=== PATIENT | female | born 1945 | race Caucasian/White ===

== ENCOUNTER 2018-02-27 06:20 | Day surgery (SDC) | payer MEDICARE, OTHER ==
[~2018-02-27] VITALS: Ht 170.2 cm; Wt 103.9 kg
[~2018-02-27 06:20] MED LIST: AMLO10 PO; ASPI325 PO; ASPI81CH PO; ASPI81EC PO; BIOTIN PO; BIOTIN5 MG PO; CELE200 PO; CLON.1 PO; CLON.2 PO; CLON.3 PO; CYCL10 PO; CYCLOBENZAPRINE PO; DOCU100 PO; EDARBI40 MG PO; ESTR2 PO; FISH OIL PO; FISH1000 PO; GLUC500 PO; HYDACE5; HYDCHL12.5 PO; HYDRALAZINE HCL PO; Hydrocodone-Ap1 EA23 PO; LAVAP17G PO; MELA3 PO; METOPROLOL 25MG PO; MULVIT PO; OMEGA PO; OMEP10ER PO; OMEP20ER PO; ONE A DAY VITAMIN PO; RANI150 PO; REPATHA SU140 MG/1 M SQ; TOCO400 PO; TRAN4 PO; TRAVER2240 PO; VERA240ERA PO; [UNRECOGNIZED DRUG - OTHER] PO
[2018-02-27] MEDS ORDERED: BACL10 (07:08)
[2018-02-27] MEDS ORDERED: LABE100 (07:08)
== END 2018-02-27 12:36 | disposition home or self-care (01) ==
LOC: ORSCSDS 06:20
PROVIDERS: Orthopaedic Surgery
PROC: 0LQ14ZZ Repair Right Shoulder Tendon, Percutaneous Endoscopic Approach (ICD-10-PCS; principal; 2018-02-27 07:30)
PROC: 0RCJ4ZZ Extirpation of Matter from Right Shoulder Joint, Percutaneous Endoscopic Approach (ICD-10-PCS; principal; 2018-02-27 07:30)
PROC: 0LS14ZZ Reposition Right Shoulder Tendon, Percutaneous Endoscopic Approach (ICD-10-PCS; principal; 2018-02-27 07:30)
PROC: 0RHJ44Z Insertion of Internal Fixation Device into Right Shoulder Joint, Percutaneous Endoscopic Approach (ICD-10-PCS; principal; 2018-02-27 07:30)
DX: M75.111 Incomplete rotator cuff tear or rupture of right shoulder, not specified as traumatic (principal); M75.21 Bicipital tendinitis, right shoulder; S46.111A Strain of muscle, fascia and tendon of long head of biceps, right arm, initial encounter; M24.011 Loose body in right shoulder; I10 Essential (primary) hypertension; Z86.73 Personal history of transient ischemic attack (TIA), and cerebral infarction without residual deficits; Z79.899 Other long term (current) drug therapy
CPT/HCPCS: C1713; J0171; J0690; J1100; J2250; J2405; J2710; J2765; J3010; J7120

== ENCOUNTER → 2019-10-31 | Outpatient (CLI) | payer MEDICARE, OTHER ==
[~2019-10-31] MED LIST changes: +BACL10; +LABE100
[2019-10-31 19:32] LABS: U Amphetamine Screen Not Detected; U Barbituate Screen Not Detected; U Benzodiazapine Screen Not Detected; U Buprenorphine Screen Not Detected; U Cannabinoids Screen Not Detected; U Cocaine Screen Not Detected; U Methadone Screen Not Detected; U Methamphetamine Screen Not Detected; U Opiates Screen DETECTED; U Oxycodone Screen Not Detected; U Phencyclidine Screen Not Detected; U Propoxyphene Screen Not Detected
== END | disposition home or self-care (01) ==
LOC: LAB 17:47 → LAB SHORT 17:47
PROVIDERS: Nurse Practitioner Family
DX: Z51.81 Encounter for therapeutic drug level monitoring (principal); Z79.891 Long term (current) use of opiate analgesic
CPT/HCPCS: G0480

== ENCOUNTER → 2020-07-21 | Outpatient (CLI) | payer MEDICARE, OTHER ==
[2020-07-21 15:58] LABS: BASOPHILS ABSOLUTE AUTO 0.04 K/mm3 (0.00-0.23); BASOPHILS PERCENT AUTO 0 % (0-2); EOSINOPHILS ABSOLUTE AUTO 0.23 K/mm3 (0.00-0.68); EOSINOPHILS PERCENT AUTO 3 % (0-6); Hematocrit 36.9 % (33.0-51.0); IMMATURE GRAN ABSOLUTE AUTO 0.02 K/mm3 (0.00-0.10); IMMATURE GRAN PERCENT AUTO 0 % (0-1); LYMPHOCYTES ABSOLUTE AUTO 2.09 K/mm3 (0.84-5.20); LYMPHOCYTES PERCENT AUTO 23 % (21-46); MONOCYTES ABSOLUTE AUTO 0.72 K/mm3 (0.16-1.47); MONOCYTES PERCENT AUTO 8 % (4-13); Mean Corpuscular HGB 30.1 pg (26.0-34.0); Mean Corpuscular HGB Conc 32.5 g/dL (31.5-36.5); Mean Corpuscular Volume 93 fL (80-100); Mean Platelet Volume 10.9 fL (9.1-12.4); NEUTROPHILS ABSOLUTE AUTO 6.08 K/mm3 (1.96-9.15); NEUTROPHILS PERCENT AUTO 66 % (41-73); Platelet Count 306 K/mm3 (150-400); RDW Coefficient Variation 13.5 % (11.7-14.2); RDW Standard Deviation 45.9 fL (35.1-46.3); Red Blood Cell Count 3.99 M/mm3 (3.80-5.20); White Blood Cell Count 9.18 K/mm3 (4.00-11.30)
[2020-07-21 16:11] LABS: Anion Gap 5 mmol/L (6-16); Blood Urea Nitrogen 20 mg/dL (8-24); Bun/Creatinine Ratio 19.6 (12.0-20.0); CO2, Blood 28 mmol/L (21-32); Calcium, Blood 9.3 mg/dL (8.5-10.1); Chloride, Blood 102 mmol/L (98-108); Creatinine, Blood 1.02 mg/dL (0.40-1.00); Glomerular Filtration Rate 53 (60-); Glucose, Blood 93 mg/dL (70-99); Potassium, Blood 4.7 mmol/L (3.5-5.5); Sodium, Blood 135 mmol/L (136-145); Troponin I <0.017 ng/mL (0.000-0.040)
[2020-07-21 16:56] LABS: Thyroid Stimulating Hormone 2.292 uIU/mL (0.360-4.800)
== END | disposition home or self-care (01) ==
LOC: LAB EV 15:54 → LAB SHORT 15:54
PROVIDERS: Family Medicine
DX: R06.09 Other forms of dyspnea (principal)
CPT/HCPCS: 80048; 83880; 84443; 84484; 85025

== ENCOUNTER → 2020-09-19 | Outpatient (CLI) | payer MEDICARE, OTHER | END | disposition home or self-care (01) | LOC: LAB EV 11:00 | DX: Z51.81 Encounter for therapeutic drug level monitoring (principal); Z79.899 Other long term (current) drug therapy | CPT/HCPCS: G0480 ==

== ENCOUNTER 2021-09-01 17:37 | Inpatient (IN) | payer MEDICARE, OTHER ==
[~2021-09-01] VITALS: Ht 170.2 cm; Wt 100.4 kg
[~2021-09-01 17:37] MED LIST changes: -ALDACTONE25 MG PO; -CATAPRES0.2 M1 PO; -ESOM20 PO; -ESOMEPRAZOLE MA20 MG PO; -Estradiol PO; -LABE200 PO; -SPIR25 PO
[2021-09-01] MEDS ORDERED: SPIR25 PO (18:20)
[2021-09-01] MEDS ORDERED: ESOM20 PO (18:21)
[2021-09-01] MEDS ORDERED: EDARBI40 MG PO (20:10)
[2021-09-01] MEDS ORDERED: BACL10 PO (20:11)
[2021-09-01] MEDS ORDERED: CATAPRES0.2 M1 PO (20:12)
[2021-09-01] MEDS ORDERED: ESOMEPRAZOLE MA20 MG PO (20:13)
[2021-09-01] MEDS ORDERED: Estradiol PO (20:14)
[2021-09-01] MEDS ORDERED: LABE200 PO (20:16)
[2021-09-01] MEDS ORDERED: ALDACTONE25 MG PO (20:17)
--- NOTE | 2021-09-02 04:44 | NUR ---
SHIFT SUMMARY: JOSE MANUEL WAS ADMITTED LAST NIGHT FOR POSSIBLE SBO. AOX3, COOPERATIVE. NEW IV STARTED IN LEFT AC 20G. IVF STARTED AND INFUSING WELL. OFF AND ON OCCATIONAL ABDOMINAL CRAMPING, TOLERABLE, NO PAIN MEDS GIVEN. ABDOMIN SLIGHTLY DISTENDED, HYPOACTIVE BT. HAD 1 EPISODE OF EMESIS OF 1000ML BROWN BILE. REPORTS BEING THIRSTY BUT NPO. HELD OFF ON NG TUBE SHE HAS SIPPED ON CONTRAST ALL NIGHT FOR THIS AM CT SCAN, LIQUID STOOL NOTED. HAS NOT HAD ANY OTHER NAUSEA SINCE THE START. NAUSEA MEDS WERE GIVEN TO HELP KEEP CONTRAST DOWN CT IS AT 6 AM THIS MORNING. WILL CONTINUE TO MONITOR. CALL LIGHT IS IN REACH.
[2021-09-02 05:16] LABS: BASOPHILS ABSOLUTE AUTO 0.05 K/mm3 (0.00-0.23); BASOPHILS PERCENT AUTO 0 % (0-2); EOSINOPHILS ABSOLUTE AUTO 0.08 K/mm3 (0.00-0.68); EOSINOPHILS PERCENT AUTO 1 % (0-6); Hematocrit 40.1 % (33.0-51.0); Hemoglobin 12.9 g/dL (11.5-16.0); IMMATURE GRAN ABSOLUTE AUTO 0.06 K/mm3 (0.00-0.10); IMMATURE GRAN PERCENT AUTO 0 % (0-1); LYMPHOCYTES ABSOLUTE AUTO 1.55 K/mm3 (0.84-5.20); LYMPHOCYTES PERCENT AUTO 10 % (21-46); MONOCYTES ABSOLUTE AUTO 1.73 K/mm3 (0.16-1.47); MONOCYTES PERCENT AUTO 11 % (4-13); Mean Corpuscular HGB 29.6 pg (26.0-34.0); Mean Corpuscular HGB Conc 32.2 g/dL (31.5-36.5); Mean Corpuscular Volume 92 fL (80-100); Mean Platelet Volume 11.2 fL (9.1-12.4); NEUTROPHILS ABSOLUTE AUTO 12.27 K/mm3 (1.96-9.15); NEUTROPHILS PERCENT AUTO 78 % (41-73); Platelet Count 298 K/mm3 (150-400); RDW Coefficient Variation 13.7 % (11.7-14.2); RDW Standard Deviation 46.1 fL (35.1-46.3); Red Blood Cell Count 4.36 M/mm3 (3.80-5.20); White Blood Cell Count 15.74 K/mm3 (4.00-11.30)
--- NOTE | 2021-09-02 06:10 | NUR ---
JOSE MANUEL SAT UP THIS MORNING AROUND 0500 AND JUST STARTED TO VOMIT EVERYWHERE. LINEN AND BEDDING WAS CHANGED. GOWN CHANGED AND PATIENT WASHED UP. CALLED RADIOLOGY AND INFORMED THAT THE PATIENT WAS NOT ABLE TO KEEP CONSTRAST DOWN. SHORTLY AFTER SHE VOMITTED AGAIN. NGT WAS PLACED. RADIOLOGY WAS INFORMED SO THAT THEY CAN VERIFY PLACEMENT. NGT PLACED IN LEFT NOSTRIL. PATIENT CURRENTLY DOWN TO RADIOLODY.
[2021-09-02 06:11] LABS: Albumin, Blood 3.1 g/dL (3.4-5.0); Albumin/Globulin Ratio 0.9 (0.8-1.8); Bilirubin, Total 0.7 mg/dL (0.1-1.0); Creatinine, Blood 2.87 mg/dL (0.40-1.00); Globulin, Blood 3.4 g/dL (2.2-4.0); Potassium, Blood 4.3 mmol/L (3.5-5.5); Total Protein, Blood 6.5 g/dL (6.4-8.2)
[2021-09-02 11:10] LABS: Influenza A, PCR NEGATIVE (NEGATIVE); Influenza B, PCR NEGATIVE (NEGATIVE); Resp Syncytial Virus, PCR NEGATIVE (NEGATIVE); SARS-Cov-2 (COVID-19) PCR, MMC NEGATIVE (NEGATIVE)
--- NOTE | 2021-09-02 18:53 | NUR ---
SHIFT SUMMARY PATIENT IS RESTING IN RECLINER CHAIR. PATIENT HAS HAD ELEVATED BP AND BACK PAIN. TREATED PER EMAR. PATIENT IS NPO WITH NG TUBE TO SUCTION. PAIENT ON TELE READING SINUS TACH PER [employer]IC APPRENTICE. PLAN TO DO A SMALL BOWEL FOLLOW THROUGH TOMORROW. WILL CONTINUE TO MONITOR.
[2021-09-03 04:50] LABS: Hematocrit 39.4 % (33.0-51.0); Hemoglobin 12.8 g/dL (11.5-16.0)
--- NOTE | 2021-09-03 04:54 | NUR ---
SHIFT SUMMARY AOX4. VSS. TELE ST c PVC @101. REPORTS 3/10 BACK PAIN FROM LYING AROUND, DENIES NEED FOR PAIN MEDICATION. NPO FOR SBO. NG TUBE IN L NARES, SET TO LOW INT SUCTION, CLEAR YELLOW DRAINAGE OUT. 24HR URINE RESTARTED @0020 SINCE LAST URINE WAS CONTAMINATED. BP ELEVATED THIS AM @181/88, GAVE 10MG HYDRALAZINE & BP DECREASED TO 154/78. CALL LIGHT IN REACH & PT ABLE TO MAKE NEEDS KNOWN. WCTM.
[2021-09-03 05:37] LABS: Cortisol, AM 50.9 ug/dL (6.7-22.6)
[2021-09-03 05:47] LABS: Albumin, Blood 3.1 g/dL (3.4-5.0); Anion Gap 12 mmol/L (6-16); Blood Urea Nitrogen 59 mg/dL (8-24); Bun/Creatinine Ratio 36.2 (12.0-20.0); CO2, Blood 20 mmol/L (21-32); CPK Creatine Kinase 42 U/L (26-193); Calcium, Blood 9.9 mg/dL (8.5-10.1); Chloride, Blood 110 mmol/L (98-108); Creatinine, Blood 1.63 mg/dL (0.40-1.00); Glomerular Filtration Rate 31 (60-); Glucose, Blood 108 mg/dL (70-99); Magnesium, Blood 2.1 mg/dL (1.6-2.4); Phosphorus, Blood 3.1 mg/dL (2.5-4.9); Sodium, Blood 142 mmol/L (136-145); Thyroid Stimulating Hormone 0.317 uIU/mL (0.360-4.800); Uric Acid, Blood 12.4 mg/dL (2.6-6.0)
--- NOTE | 2021-09-03 09:55 | NUR ---
PT HAS RETURNED FROM IMAGING AFTER FIRST PART OF SMALL BOWEL FOLLOW THRU. SHE DENIES NAUSEA OR NEED FOR MEDICATAION. INSTRUCTED TO CALL IF SHE HAS ANY NAUSEA. CALL ESCALANTE IN REACH, WILL MONITOR.
--- NOTE | 2021-09-03 18:36 | NUR ---
NGT DISCONTINUED W/O DIFFICULTY PER DR RAMOS'S ORDER. CLEAR LIQUID TRAY ORDERED AND DELIVERED TO PT. SHE IS TOLERATING WELL AT THIS TIME. WILL MONITOR.
--- NOTE | 2021-09-04 04:43 | NUR ---
PT ALERT AND ORIENTED. DID NOT HAVE MUCH SLEEP TONIGHT. NO C/O OF GI ISSUUES. RESTING ON BED QUIETLY. EXPRESS FEELING BETTER. CALL LIGHT WHITIN REACH. KEEP MOONITORING
[2021-09-04 05:27] LABS: Hematocrit 37.2 % (33.0-51.0); Hemoglobin 11.8 g/dL (11.5-16.0)
[2021-09-04 05:53] LABS: Albumin, Blood 3.1 g/dL (3.4-5.0); Anion Gap 9 mmol/L (6-16); Blood Urea Nitrogen 58 mg/dL (8-24); CO2, Blood 22 mmol/L (21-32); Calcium, Blood 9.1 mg/dL (8.5-10.1); Chloride, Blood 114 mmol/L (98-108); Creatinine, Blood 1.38 mg/dL (0.40-1.00); Glomerular Filtration Rate 37 (60-); Glucose, Blood 123 mg/dL (70-99); Magnesium, Blood 2.1 mg/dL (1.6-2.4); Potassium, Blood 3.6 mmol/L (3.5-5.5); Sodium, Blood 145 mmol/L (136-145)
[2021-09-04 09:52] LABS: Protein, Urine Quantitative 29.6 mg/dL (0.0-11.9)
--- NOTE | 2021-09-04 15:19 | NUR ---
DISCHARGE DISCHARGE INSTRUCTIONS, MEDIATION LIST AND FOLLOW UP APPOINTMENT REVIEWED WITH PT AND HER SPOUSE. QUESTIONS/CONCERNS ANSWERED. BOTH VERBALLY INDICATED UNDERSTANDING OF ALL INSTRUCTIONS RECEIVED. ESCORTED OUT VIA W/C BY JULIA
[2021-09-07 10:11] LABS: ANTIGLOMERULAR BM AB 2 units (0-20)
[2021-09-07 13:11] LABS: ANA DIRECT Negative (Negative); ANTIMYELOPEROXIDASE (MPO) ABS <9.0 U/mL (0.0-9.0); ANTIPROTEINASE 3 (PR-3) ABS <3.5 U/mL (0.0-3.5); ATYPICAL PANCA <1:20 titer (Neg:<1:20); CYTOPLASMIC (C-ANCA) <1:20 titer (Neg:<1:20); PERINUCLEAR (P-ANCA) <1:20 titer (Neg:<1:20)
[2021-09-07 15:11] LABS: A/G RATIO 1.1 (0.7-1.7); ALBUMIN 3.2 g/dL (2.9-4.4); ALPHA-1-GLOBULIN 0.4 g/dL (0.0-0.4); ALPHA-2-GLOBULIN 1.1 g/dL (0.4-1.0); GAMMA GLOBULIN 0.7 g/dL (0.4-1.8); GLOBULIN, TOTAL 3.2 g/dL (2.2-3.9); IMMUNOGLOBULIN A, QN, SERUM 130 mg/dL (64-422); IMMUNOGLOBULIN G, QN, SERUM 628 mg/dL (586-1602); IMMUNOGLOBULIN M, QN, SERUM 33 mg/dL (26-217); M-SPIKE Not Observed g/dL (Not Observed); PROTEIN, TOTAL, SERUM 6.4 g/dL (6.0-8.5)
[2021-09-09 11:11] LABS: M-SPIKE, % Not Observed % (Not Observed); PROTEIN,TOTAL,URINE 9.5 mg/dL (Not Estab.)
== END 2021-09-04 15:16 | disposition home or self-care (01) | DRG 389 ==
LOC: MEDS 17:37
PROVIDERS: Internal Medicine Nephrology; Surgery; ADMIT Family Medicine
DX: K56.609 Unspecified intestinal obstruction, unspecified as to partial versus complete obstruction (principal); I13.0 Hypertensive heart and chronic kidney disease with heart failure and stage 1 through stage 4 chronic kidney disease, or unspecified chronic kidney disease; I50.32 Chronic diastolic (congestive) heart failure; N17.9 Acute kidney failure, unspecified; E87.1 Hypo-osmolality and hyponatremia; R65.10 Systemic inflammatory response syndrome (SIRS) of non-infectious origin without acute organ dysfunction; E87.2 Acidosis; E86.0 Dehydration; Z20.822 Contact with and (suspected) exposure to COVID-19; E83.39 Other disorders of phosphorus metabolism; E88.09 Other disorders of plasma-protein metabolism, not elsewhere classified; N18.30 Chronic kidney disease, stage 3 unspecified; K59.09 Other constipation; E78.5 Hyperlipidemia, unspecified; R73.03 Prediabetes; G89.4 Chronic pain syndrome; G47.33 Obstructive sleep apnea (adult) (pediatric); F41.9 Anxiety disorder, unspecified; E55.9 Vitamin D deficiency, unspecified; E66.9 Obesity, unspecified; G47.00 Insomnia, unspecified; K21.9 Gastro-esophageal reflux disease without esophagitis; F32.A Depression, unspecified; Z96.653 Presence of artificial knee joint, bilateral; Z90.710 Acquired absence of both cervix and uterus; Z88.2 Allergy status to sulfonamides; Z88.8 Allergy status to other drugs, medicaments and biological substances; Z28.21 Immunization not carried out because of patient refusal; Z91.013 Allergy to seafood; Z79.899 Other long term (current) drug therapy; Z79.82 Long term (current) use of aspirin; Z98.890 Other specified postprocedural states; Z86.73 Personal history of transient ischemic attack (TIA), and cerebral infarction without residual deficits
CPT/HCPCS: 0241U; 36415; 71045; 74022; 74176; 74250; 80053; 80069; 81050; 82397; 82533; 82550; 82784; 83516; 83520; 83690; 83735; 83970; 84156; 84165; 84443; 84550; 85014; 85018; 85025; 86038; 86256; 86334; A9270; C9113; J0360; J1644; J2270; J2405; J2765; J7030; J7060

== ENCOUNTER → 2021-09-01 | Outpatient (CLI) | payer MEDICARE, OTHER ==
[~2021-09-01] MED LIST changes: +ALDACTONE25 MG PO; -BACL10; +BACL10 PO; +CATAPRES0.2 M1 PO; +ESOM20 PO; +ESOMEPRAZOLE MA20 MG PO; +Estradiol PO; -LABE100; +LABE100 PO; +LABE200 PO; +SPIR25 PO
[2021-09-01 11:52] LABS: BASOPHILS ABSOLUTE AUTO 0.04 K/mm3 (0.00-0.23); BASOPHILS PERCENT AUTO 0 % (0-2); EOSINOPHILS ABSOLUTE AUTO 0.07 K/mm3 (0.00-0.68); EOSINOPHILS PERCENT AUTO 0 % (0-6); Hematocrit 43.9 % (33.0-51.0); Hemoglobin 14.4 g/dL (11.5-16.0); IMMATURE GRAN ABSOLUTE AUTO 0.05 K/mm3 (0.00-0.10); IMMATURE GRAN PERCENT AUTO 0 % (0-1); LYMPHOCYTES ABSOLUTE AUTO 1.21 K/mm3 (0.84-5.20); LYMPHOCYTES PERCENT AUTO 8 % (21-46); MONOCYTES ABSOLUTE AUTO 1.35 K/mm3 (0.16-1.47); MONOCYTES PERCENT AUTO 8 % (4-13); Mean Corpuscular HGB 29.8 pg (26.0-34.0); Mean Corpuscular HGB Conc 32.8 g/dL (31.5-36.5); Mean Corpuscular Volume 91 fL (80-100); Mean Platelet Volume 10.5 fL (9.1-12.4); NEUTROPHILS ABSOLUTE AUTO 13.27 K/mm3 (1.96-9.15); NEUTROPHILS PERCENT AUTO 83 % (41-73); Platelet Count 337 K/mm3 (150-400); RDW Standard Deviation 46.2 fL (35.1-46.3); Red Blood Cell Count 4.83 M/mm3 (3.80-5.20); White Blood Cell Count 15.99 K/mm3 (4.00-11.30)
[2021-09-01 12:08] LABS: Albumin, Blood 3.8 g/dL (3.4-5.0); Albumin/Globulin Ratio 1.1 (0.8-1.8); Bilirubin, Total 1.1 mg/dL (0.1-1.0); Bun/Creatinine Ratio 17.6 (12.0-20.0); Calcium, Blood 11.1 mg/dL (8.5-10.1); Creatinine, Blood 3.41 mg/dL (0.40-1.00); Globulin, Blood 3.6 g/dL (2.2-4.0); Potassium, Blood 4.7 mmol/L (3.5-5.5); Total Protein, Blood 7.4 g/dL (6.4-8.2)
== END | disposition home or self-care (01) ==
LOC: LAB SHORT 11:49 → LAB 11:49
PROVIDERS: Physician Assistant
DX: R11.2 Nausea with vomiting, unspecified (principal)
CPT/HCPCS: 80053; 83690; 85025

== ENCOUNTER → 2021-10-22 | Outpatient (CLI) | payer MEDICARE, OTHER ==
[~2021-10-22] MED LIST changes: +ALDACTONE25 MG PO; +CATAPRES0.2 M1 PO; +ESOM20 PO; +ESOMEPRAZOLE MA20 MG PO; +Estradiol PO; +LABE200 PO; +SPIR25 PO
[2021-10-28 13:09] LABS: CARBOXY-THC Not Detected (.)
== END | disposition home or self-care (01) ==
LOC: LAB SHORT 18:03
PROVIDERS: Family Medicine
DX: Z51.81 Encounter for therapeutic drug level monitoring (principal); Z79.899 Other long term (current) drug therapy
CPT/HCPCS: G0480

== ENCOUNTER → 2022-01-28 | Outpatient (CLI) | payer MEDICARE, OTHER | END | disposition home or self-care (01) | LOC: LAB SHORT 13:20 → LAB 13:20 | PROVIDERS: Family Medicine | DX: Z51.81 Encounter for therapeutic drug level monitoring (principal); Z79.899 Other long term (current) drug therapy | CPT/HCPCS: G0480 ==

== ENCOUNTER → 2022-04-30 | Outpatient (CLI) | payer MEDICARE, OTHER ==
[2022-04-30 10:41] LABS: Alanine Aminotransfer (ALT/SGP 23 U/L (12-78); Albumin, Blood 3.1 g/dL (3.4-5.0); Albumin/Globulin Ratio 0.9 (0.8-1.8); Alk Phos 91 U/L (50-136); Anion Gap 5 mmol/L (6-16); Aspartate Aminotrans (AST/SGOT 17 U/L (12-37); Bilirubin, Total 0.4 mg/dL (0.1-1.0); Blood Urea Nitrogen 29 mg/dL (8-24); Bun/Creatinine Ratio 26.4 (12.0-20.0); CHOL/HDL RATIO 3.8; CO2, Blood 28 mmol/L (21-32); Calcium, Blood 9.5 mg/dL (8.5-10.1); Chloride, Blood 105 mmol/L (98-108); Cholesterol 250 mg/dL (50-200); Globulin, Blood 3.6 g/dL (2.2-4.0); Glomerular Filtration Rate 52 (60-); Glucose, Blood 106 mg/dL (70-99); HDL Cholesterol 65 mg/dL (>39); LDL/HDL RATIO 1.7; Low Density Lipoprotein Chol 112 mg/dL (0-110); Sodium, Blood 138 mmol/L (136-145); Total Protein, Blood 6.7 g/dL (6.4-8.2); Triglycerides 363 mg/dL (30-160); Very Low Density Lipoprot Chol 72 mg/dL (6-32)
== END | disposition home or self-care (01) ==
LOC: LAB SHORT 09:47 → LAB 09:47 → EDSTATUS 14:49
PROVIDERS: Family Medicine
DX: E78.5 Hyperlipidemia, unspecified (principal); R73.03 Prediabetes; Z79.899 Other long term (current) drug therapy
CPT/HCPCS: 36415; 80053; 80061; 83036

== ENCOUNTER → 2022-07-27 | Outpatient (CLI) | payer MEDICARE, OTHER | END | disposition home or self-care (01) | LOC: LAB 14:46 → LAB SHORT 14:46 | PROVIDERS: Family Medicine | DX: Z51.81 Encounter for therapeutic drug level monitoring (principal); Z79.899 Other long term (current) drug therapy | CPT/HCPCS: G0480 ==

== ENCOUNTER → 2023-02-14 | Outpatient (CLI) | payer MEDICARE, OTHER | LOC: LAB 15:49 → LAB SHORT 15:49 | PROVIDERS: Family Medicine | DX: Z79.899 Other long term (current) drug therapy (principal) | CPT/HCPCS: G0480 ==

== ENCOUNTER → 2023-05-24 | Outpatient (CLI) | payer MEDICARE, OTHER | LOC: LAB SHORT 14:00 → LAB 14:00 | PROVIDERS: Family Medicine | DX: Z51.81 Encounter for therapeutic drug level monitoring (principal); Z79.899 Other long term (current) drug therapy | CPT/HCPCS: G0480 ==

== ENCOUNTER → 2023-11-10 | Outpatient (CLI) | payer MEDICARE, OTHER ==
[2023-11-13 18:16] LABS: 6-ACETYLMORPHINE, URN, QUANT <10 ng/mL; CODEINE, URN, QUANT <20 ng/mL; HYDROCODONE, URN, QUANT <20 ng/mL; HYDROMORPHONE, URN, QUANT <20 ng/mL; MORPHINE, URN, QUANT <20 ng/mL; NORHYDROCODONE, URN, QUANT <20 ng/mL; NOROXYCODONE, URN, QUANT 878 ng/mL; NOROXYMORPHONE, URN, QUANT <20 ng/mL; OXYCODONE, URN, QUANT 143 ng/mL; OXYMORPHONE, URN, QUANT <20 ng/mL
== END ==
LOC: LAB SHORT 12:00 → LAB 12:00
PROVIDERS: Family Medicine
DX: Z51.81 Encounter for therapeutic drug level monitoring (principal); Z79.899 Other long term (current) drug therapy
CPT/HCPCS: G0480

== ENCOUNTER 2024-04-24 09:19 | Day surgery (SDC) | payer MEDICARE, OTHER ==
[~2024-04-24] VITALS: Ht 170.2 cm; Wt 99.2 kg
[~2024-04-24 09:19] MED LIST changes: +Balanced Salt Epinephrine Irrigation Solution 500 mL IR SCH; +Lidocaine HCl/Pf 1% 5 ML VIAL XX SCH; +Moxifloxacin HCL 0.5 MG/0.1 ML 0.4MLSYR RIGHTEYE SCH; +NS 500 ML IV ONE; +PHENYLEPHRINE\\TROPICAMIDE\\TETRACAINE OPHTHALMIC DILATING SOLN RIGHTEYE PRN; +Povidone-Iodine 450 DROP/30 ML Solution RIGHTEYE SCH
[2024-04-24] MEDS ORDERED: FentaNYL Citrate 50 MCG/ML 2 ML Injection ONE (09:41)
[2024-04-24] MEDS ORDERED: Midazolam HCl 1MG / ML 2ML Vial ONE (09:41)
[2024-04-24] MEDS ORDERED: IRBE150 (09:49)
[2024-04-24] MEDS ORDERED: FENO160 PO (09:49)
--- NOTE | 2024-04-24 09:53 | NUR ---
04/24/24 0953 Ye Oh CALL LIGHT WITHIN REACH. TETRACAINE IN RIGHT EYE AT 0946 AND PLEDGETT IN AT 0947
[2024-04-24] MEDS ORDERED: NS 500 ML IV ONE (09:55)
[2024-04-24 10:59] VITALS: BP 173/93
== END 2024-04-24 11:18 | disposition home or self-care (01) ==
LOC: ORSCSDS 09:19
PROVIDERS: Student in an Organized Health Care Education/Training Program
PROC: 08RJ3JZ Replacement of Right Lens with Synthetic Substitute, Percutaneous Approach (ICD-10-PCS; principal; 2024-04-24 10:30)
DX: E11.36 Type 2 diabetes mellitus with diabetic cataract (principal); H25.813 Combined forms of age-related cataract, bilateral; H25.11 Age-related nuclear cataract, right eye; F41.9 Anxiety disorder, unspecified; I12.9 Hypertensive chronic kidney disease with stage 1 through stage 4 chronic kidney disease, or unspecified chronic kidney disease; N18.30 Chronic kidney disease, stage 3 unspecified; F32.A Depression, unspecified; K21.9 Gastro-esophageal reflux disease without esophagitis; Z86.73 Personal history of transient ischemic attack (TIA), and cerebral infarction without residual deficits; E78.5 Hyperlipidemia, unspecified; G47.33 Obstructive sleep apnea (adult) (pediatric); E11.22 Type 2 diabetes mellitus with diabetic chronic kidney disease; E66.9 Obesity, unspecified; Z68.34 Body mass index [BMI] 34.0-34.9, adult; Z79.899 Other long term (current) drug therapy
CPT/HCPCS: 82947; J2250; J3010; J7040; V2632

== ENCOUNTER 2024-05-01 09:03 | Day surgery (SDC) | payer MEDICARE, OTHER ==
[~2024-05-01] VITALS: Ht 162.6 cm; Wt 100.5 kg
[~2024-05-01 09:03] MED LIST changes: +FENO160 PO; +IRBE150; +Moxifloxacin HCL 0.5 MG/0.1 ML 0.4MLSYR LEFTEYE SCH; -Moxifloxacin HCL 0.5 MG/0.1 ML 0.4MLSYR RIGHTEYE SCH; +PHENYLEPHRINE\\TROPICAMIDE\\TETRACAINE OPHTHALMIC DILATING SOLN LEFTEYE PRN; -PHENYLEPHRINE\\TROPICAMIDE\\TETRACAINE OPHTHALMIC DILATING SOLN RIGHTEYE PRN; +Povidone-Iodine 450 DROP/30 ML Solution LEFTEYE SCH; -Povidone-Iodine 450 DROP/30 ML Solution RIGHTEYE SCH
[2024-05-01] MEDS ORDERED: Midazolam HCl 1MG / ML 2ML Vial ONE (09:21)
[2024-05-01] MEDS ORDERED: FentaNYL Citrate 50 MCG/ML 2 ML Injection ONE (09:21)
[2024-05-01] MEDS ORDERED: OXYCODONE-ACET1 EAC3 PO (09:42)
[2024-05-01] MEDS ORDERED: NS 500 ML IV ONE (09:45)
--- NOTE | 2024-05-01 09:46 | NUR ---
05/01/24 0946 Milka [place] AT 0933 UMAET AT 0955
[2024-05-01] MEDS ORDERED: Phenylephrine Frt 10% Opth (ORSC) ONE (09:53)
[2024-05-01 11:13] VITALS: BP 146/89
== END 2024-05-01 10:57 | disposition home or self-care (01) ==
LOC: ORSCSDS 09:03
PROVIDERS: Student in an Organized Health Care Education/Training Program
PROC: 08RK3JZ Replacement of Left Lens with Synthetic Substitute, Percutaneous Approach (ICD-10-PCS; principal; 2024-05-01 10:30)
DX: E11.36 Type 2 diabetes mellitus with diabetic cataract (principal); H25.812 Combined forms of age-related cataract, left eye; Z96.1 Presence of intraocular lens; E11.22 Type 2 diabetes mellitus with diabetic chronic kidney disease; I12.9 Hypertensive chronic kidney disease with stage 1 through stage 4 chronic kidney disease, or unspecified chronic kidney disease; N18.9 Chronic kidney disease, unspecified; F32.A Depression, unspecified; F41.9 Anxiety disorder, unspecified; E78.5 Hyperlipidemia, unspecified; G47.33 Obstructive sleep apnea (adult) (pediatric); Z86.73 Personal history of transient ischemic attack (TIA), and cerebral infarction without residual deficits; K21.9 Gastro-esophageal reflux disease without esophagitis; E66.9 Obesity, unspecified; Z68.38 Body mass index [BMI] 38.0-38.9, adult; Z79.899 Other long term (current) drug therapy
CPT/HCPCS: 82947; J2250; J3010; J7040; V2632